=== PATIENT | female | born 1995 | race Caucasian/White ===

== ENCOUNTER 2023-08-23 08:42 | Outpatient (CLI) | payer BC, SELFPAY | END 2023-08-23 08:43 | disposition home or self-care (01) | PROVIDERS: PCP Student in an Organized Health Care Education/Training Program; Visit Provider Obstetrics & Gynecology | DX: Z01.419 Encounter for gynecological examination (general) (routine) without abnormal findings (principal); N97.9 Female infertility, unspecified | CPT/HCPCS: 80048; 84439; 84443 ==

== ENCOUNTER 2023-10-14 08:25 | Outpatient (CLI) | payer BC, SELFPAY | END 2023-10-14 08:26 | disposition home or self-care (01) | LOC: NFLDREF 10-22 12:20 | PROVIDERS: PCP Student in an Organized Health Care Education/Training Program; Referring Provider Student in an Organized Health Care Education/Training Program; Visit Provider Obstetrics & Gynecology | DX: N97.9 Female infertility, unspecified (principal) | CPT/HCPCS: 82670; 83001; 83002; 84146; 84443 ==

== ENCOUNTER 2023-10-21 08:45 | Outpatient (CLI) | payer BC, SELFPAY ==
--- NOTE | 2023-10-21 09:15 | FL_ITS ---
Patient: BETTY CALVIN Facility:?[facility] Patient ID:?[id number] Site Patient ID:?[id number]. Site :?[id number] Study:?XRay-Pelvis [facility] DR. HUERTA TO READ-10/21/2023 9:52:24 AM Ordering Physician:?TWYLA BARR Final Report: Indication: INFERTILITY Technique: Routine hysterosalpingogram. Fluoroscopic time 25 seconds. IMPRESSION: Normal patency of the fallopian tubes. No endometrial canal filling defect. Normal exam. Dictated by Juan Carlos Huerta MD @ 10/21/2023 10:38:33 AM Signed by:?Juan Carlos Huerta MD @10/21/2023 10:38:33 AM (Electronic Signature)
--- NOTE | 2023-10-21 09:45 | P.PCN_ITS ---
Procedure Note Time Seen by Provider: 09:30 Date Seen: 10/21/23 Date of procedure: 10/21/23 Will [facility] bill your pro fee for this procedure?: Yes Procedure: DATE: [] PREPROCEDURE DIAGNOSIS: Infertility POSTPROCEDURE DIAGNOSIS: 1. Infertility 2. Patent fallopian tubes bilaterally. NAME OF PROCEDURE: Hysterosalpingogram. ANESTHESIA: None. COMPLICATIONS: None. PROCEDURE: After obtaining verbal consent, the patient was placed in the dorsal lithotomy position on the x-ray table. An open-sided bivalve speculum was introduced into the vagina and the cervix easily visualized. The cervix and vagina were then prepped with Betadine. Os binder/cervical dilator used: No. A balloon tipped double-lumen catheter was then gently inserted through the cervical opening into the uterine cavity to the level of the fundus. The balloon was insufflated with 3 mL of air. The speculum was removed. The patient was repositioned in the supine position, covered, and the radiologist was called to the room. A hysterosalpingogram was then performed. A total of 5 cc of Optiray 300 water soluble contrast dye was injected through the double-lumen catheter under moderate pressure. There was immediate fill of the uterine cavity to the cornua [and immediate fill of both fallopian tubes and free spillage of dye on both sides] The balloon was deflated. The catheter was removed. The patient tolerated the procedure well, though she did have moderate cramping discomfort during and just after the procedure. She was discharged to home in stable condition and make an appointment with her physician to review all of her lab results and procedure results.
== END 2023-10-21 08:46 | disposition home or self-care (01) ==
LOC: RAD 08:46
PROVIDERS: PCP Student in an Organized Health Care Education/Training Program; Visit Provider Obstetrics & Gynecology
DX: N97.9 Female infertility, unspecified (principal)
CPT/HCPCS: 58340; 74740; A4649; Q9967

== ENCOUNTER 2023-11-02 08:14 | Outpatient (CLI) | payer BC, SELFPAY | END 2023-11-02 08:15 | disposition home or self-care (01) | LOC: NFLDREF 11-08 06:43 | PROVIDERS: PCP Student in an Organized Health Care Education/Training Program; Referring Provider Student in an Organized Health Care Education/Training Program; Visit Provider Obstetrics & Gynecology | DX: N97.9 Female infertility, unspecified (principal) | CPT/HCPCS: 84144 ==